=== PATIENT | female | born 1945 | race Caucasian/White ===

== ENCOUNTER 2018-09-02 06:00 | Day surgery (SDC) | payer OTHER ==
[~2018-09-02 06:00] MED LIST: AVAPRO300 MG PO; NORVASC2.5 M1 PO; PLAVIX75 MG PO; SIMVASTATIN20 MG PO; SYNTROID PO
[2018-09-02] MEDS ORDERED: TRAMADOL HCL50 MG PO (10:02)
[2018-09-02] MEDS ORDERED: RECTICARE30 GM TOP (10:04)
== END 2018-09-02 13:50 | disposition home or self-care (01) ==
LOC: CIR.AMB 06:00
DX: D12.9 Benign neoplasm of anus and anal canal (principal); K62.4 Stenosis of anus and rectum